=== PATIENT | female | born 1970 | race Caucasian/White ===

== ENCOUNTER → 2016-08-14 | Outpatient (CLI) | payer BC ==
--- NOTE | 2016-08-14 14:19 | MR ---
EXAMINATION TYPE: MR cervical spine wo con DATE OF EXAM: 08/14/2016 1:53 PM COMPARISON: NONE HISTORY: Arnold-Chiari type 1 compression of brain, pain TECHNIQUE: Multiplanar, multisequence images of the cervical spine were acquired. C2-C3: No evidence for degenerative disc disease. No disc bulge/herniation or protrusion. No Canal stenosis. Foramina are patent bilaterally. C3-C4: No evidence for degenerative disc disease. No disc bulge/herniation or protrusion. No Canal stenosis. Foramina are patent bilaterally. C4-C5: No evidence for degenerative disc disease. No disc bulge/herniation or protrusion. No Canal stenosis. Foramina are patent bilaterally. C5-C6: Small posterior disc bulge causes minimal anterior mass effect on the thecal sac similar to pr ior exam. No Canal stenosis. Foramina are patent bilaterally. C6-C7: No evidence for degenerative disc disease. No disc bulge/herniation or protrusion. No Canal stenosis. Foramina are patent bilaterally. C7-T1: No evidence for degenerative disc disease. No disc bulge/herniation or protrusion. No Canal stenosis. Foramina are patent bilaterally. Postop changes compatible with Chiari decompression are present. Fluid signal is present at the poste rior occipital soft tissues, portion of the posterior elements of C1 have been resected as well as th e occipital craniotomy. The fluid collection measures approximately 5.5 x 2.4 x 3.7 cm. Slight contou r anomaly present at the posterior cerebellum similar to preoperative exam. There may be some local m ass effect. There is tonsillar beaking present. Cervical cord signal is maintained. There is normal a lignment. No significant central canal stenosis. Craniovertebral junction relationships are within no rmal limits. IMPRESSION: Postoperative changes as described. Correlate, findings likely represent seroma. Otherwise essentiall y stable findings.
== END | disposition home or self-care (01) ==
LOC: RADMRIMAIN 13:00
PROVIDERS: ATTEND Neurological Surgery
DX: G93.5 Compression of brain (principal); Z98.890 Other specified postprocedural states
CPT/HCPCS: 72141

== ENCOUNTER 2017-06-06 23:27 | Emergency (ER) | payer BC ==
[2017-06-06 23:32] VITALS: BP 137/65; PULSE 63; RESP 18; TEMP 97.6
--- NOTE | 2017-06-06 23:56 | ED ---
General Adult HPI - General Chief complaint: Wound/Laceration Stated complaint: chin lac Time Seen by Provider: 06/06/17 23:35 Source: patient, RN notes reviewed Mode of arrival: ambulatory Limitations: no limitations - History of Present Illness Initial comments: 46-year-old female presents for a chin laceration. Patient was rollerblading and she tripped and fell and cut her chin around 9:00 today. She is up-to-date on her tetanus vaccination. She states she does not lose consciousness she's not had a headache she denies any neck pain. She denies any nausea or vomiting. She was concerned due to the bleeding so she thought that she should be evaluated.Patient denies any recent fever, chills, shortness of breath, chest pain, back pain, abdominal pain, nausea vomiting, numbness or tingling, dysuria or hematuria, constipation or diarrhea, headaches or visual changes, or any other current symptoms. - Related Data Home Medications Medication Instructions Recorded Confirmed Ibuprofen [Motrin] 600 mg PO Q6HR PRN 06/06/17 06/06/17 Multivitamins, Thera [Multivitamin 1 tab PO DAILY 06/06/17 06/06/17 (formulary)] Allergies Allergy/AdvReac Type Severity Reaction Status Date / Time No Known Allergies Allergy Verified 06/06/17 23:40 Review of Systems ROS Statement: Those systems with pertinent positive or pertinent negative responses have been documented in the HPI. ROS Other: All systems not noted in ROS Statement are negative. Past Medical History Past Medical History: No Reported History History of Any Multi-Drug Resistant Organisms: None Reported Past Surgical History: No Surgical Hx Reported Past Psychological History: No Psychological Hx Reported Smoking Status: Never smoker Past Alcohol Use History: Rare Past Drug Use History: None Reported General Exam Limitations: no limitations General appearance: alert, in no apparent distress Head exam: Present: atraumatic, normocephalic. Absent: normal inspection ( Patient appears to have a 1-1/2 from a laceration to the chin) Eye exam: Present: normal appearance, PERRL, EOMI. Absent: scleral icterus, conjunctival injection, periorbital swelling ENT exam: Present: normal exam, normal oropharynx, mucous membranes moist, normal external ear exam Neck exam: Present: normal inspection. Absent: tenderness, meningismus, lymphadenopathy Respiratory exam: Present: normal lung sounds bilaterally. Absent: respiratory distress, wheezes, rales, rhonchi, stridor Cardiovascular Exam: Present: regular rate, normal rhythm, normal heart sounds. Absent: systolic murmur, diastolic murmur, rubs, gallop, clicks Neurological exam: Present: alert, oriented X3 Psychiatric exam: Present: normal affect, normal mood Skin exam: Present: warm, dry, intact, normal color. Absent: rash Course Vital Signs 06/06/17 23:30 Temperature 97.6 F Pulse Rate 63 Respiratory 18 Rate Blood Pressure 137/65 O2 Sat by Pulse 99 Oximetry Procedures - Procedures Initial comment: The skin was anesthetized with 1% lidocaine. The laceration was then cleansed with Betadine and irrigated with normal saline. The wound was inspected, and there was no evidence of injury to deep structures. No foreign body was noted in the wound. A total of 3 skin sutures were placed utilizing 6-0 nylon to a 1.5 cm laceration of the chin Medical Decision Making - Medical Decision Making 46-year-old female presents emergency department with chief complaint of chin laceration. This time patient went suture care. We discussed follow-up return parameters questions. They stated that she understood and she plan. She will be discharged. Disposition Clinical Impression: Chin laceration, Fall Disposition: HOME SELF-CARE Condition: Stable Instructions: Laceration (ED), Care For Your Stitches (ED) Additional Instructions: Please use medication as discussed. Please follow up with family doctor if symptoms have not improved over the next two days. Please return to the emergency room if your symptoms increase or worsen or for any other concerns. Please return to the emergency room in 5 days to have sutures removed. Please leave wound covered for the first 24-48 hours and then leave open to air after that time. Please use clean soap and water to clean the suture area to prevent scabbing over the top of your sutures. Please watch for any signs of infection which may include but not limited to increased pain, swelling, redness, fever or chills. Please return to the emergency room if any signs of infection do occur. Please return to the emergency room for any other concerns or complications. Referrals: Azael Connolly DO [Primary Care Provider] - 1-2 days Time of Disposition: 23:56
== END 2017-06-07 00:18 | disposition home or self-care (01) ==
LOC: EC 23:27
DX: S01.81XA Laceration without foreign body of other part of head, initial encounter (principal); W01.0XXA Fall on same level from slipping, tripping and stumbling without subsequent striking against object, initial encounter
CPT/HCPCS: 12011; 99282

== ENCOUNTER → 2017-11-12 | Outpatient (CLI) | payer OTHER ==
--- NOTE | 2017-11-12 21:43 | MR ---
EXAMINATION TYPE: MR lumbar spine wo con DATE OF EXAM: 11/12/2017 COMPARISON: NONE HISTORY: Low back pain since 1997 getting worse CONTRAST: 0 mL intravenous Gadavist. TECHNIQUE: Multiplanar, multisequence images of the lumbar spine were acquired. FINDINGS: Heart terminates at the L1 level. Disc desiccation is noted with some minimal preservation of the L4-5 hydration. L5-S1: Central moderate-sized disc bulge is present with moderate anterior thecal sac compression. No AP spinal canal stenosis present. Neural foramen are patent. L4-L5: Mild disc bulging is anterior thecal sac flattening. Mild facet hypertrophy is present with li gamentum flavum laxity. This has mild posterior lateral thecal sac compression. No spinal canal steno sis is present. No focal disc herniation is evident. Neural foramen are patent. L3-L4: Tiny central disc bulge is present with anterior thecal sac contact. No spinal canal stenosis or neural foraminal stenosis is present. Minimal ligamentum flavum laxity has posterior lateral theca l sac compression. L2-L3: No spinal canal stenosis. No foraminal stenosis. Minimal facet hypertrophy and ligamentum fla vum laxity is posterior lateral thecal sac compression. Some central focal bulging is present with an terior thecal sac contact. L1-L2: No significant disc bulge or disc herniation. No spinal canal stenosis. No foraminal stenosi s. . T12-L1: No significant disc bulge or disc herniation. No spinal canal stenosis. No foraminal stenos is. . IMPRESSION: 1. Moderate size central disc herniation L5-S1 with moderate anterior thecal sac compression. No sten osis is present. 2. Mild disc bulging L4-5 with mild anterior thecal sac flattening. 3. Minimal disc bulging L3-4 with anterior thecal sac contact. 4. Multilevel mild facet hypertrophy with minimal ligamentum flavum laxity has posterior lateral thec al sac compression. No stenosis is evident
== END | disposition home or self-care (01) ==
LOC: RADMRIMAIN 20:57
PROVIDERS: ATTEND Family Medicine
DX: M51.27 Other intervertebral disc displacement, lumbosacral region (principal); M46.86 Other specified inflammatory spondylopathies, lumbar region
CPT/HCPCS: 72148

== ENCOUNTER → 2017-12-31 | Outpatient (CLI) | payer OTHER ==
[2017-12-31 13:36] VITALS: BP 112/78; PULSE 74; RESP 16
--- NOTE | 2017-12-31 14:43 | P.HPIM ---
History of Present Illness H&P Date: 12/31/17 Chief Complaint: low back pain This is a 47-year-old patient referred by Dr. Connolly for chronic pain in low back without radiation. Patient's pain began when she lifted heavy drywall in 1997 and it has persistently worsened since then. Patient has been taking OTC medications for pain with only mild relief. Patient denies adverse drug effects from medications. Patient also denies new-onset weakness, bowel/ bladder incontinence, or any other signs or symptoms of cauda equina syndrome. There are no signs of acute intoxication, and no indications of medication diversion or overuse. Patient notes that pain worsens significantly with sitting/bending/twisting/ lifting and improves with rest Patient has used several types of medications for pain, including NSAIDS. Patient HAS NOT had surgery. Patient HAS NOT had injections previously. Patient HAS NOT had physical therapy recently. In addition to above, 13-point review of systems is also negative for chest pain , shortness of breath, changes in vision, changes in hearing, new onset weakness , abdominal pain, diarrhea, extreme fatigue, malaise, fever, skin changes, homicidal or suicidal ideation, or bowel or bladder incontinence. Vital Signs: Reviewed in EMR Gen: WDWN, AAOx3, NAD HEENT: NCAT, EOMI, hearing grossly normal Pulm: resp unlabored Abd: soft, NT, ND Neck: supple, trachea midline ROM in flexion lumbar spine: reduced ROM in extension lumbar spine: reduced Lumbar paravertebral tenderness: + Facet loading: + L > R SI joint tenderness: neg Jd's test: neg Straight leg raise: neg Past Medical History Past Medical History: No Reported History Additional Past Medical History / Comment(s): CHRONIC BACK PAIN History of Any Multi-Drug Resistant Organisms: None Reported Past Surgical History: Appendectomy, Tubal Ligation, Uterine Ablation Additional Past Surgical History / Comment(s): CHIARI MALFORMATION SX, SX TO PUT "FOLDS IN EARS" Past Anesthesia/Blood Transfusion Reactions: No Reported Reaction Past Psychological History: No Psychological Hx Reported Smoking Status: Never smoker Past Alcohol Use History: Rare Past Drug Use History: None Reported Medications and Allergies Home Medications Medication Instructions Recorded Confirmed Type Ibuprofen [Motrin] 600 mg PO Q6HR PRN 06/06/17 12/31/17 History Multivitamins, Thera [Multivitamin 1 tab PO DAILY 06/06/17 12/31/17 History (formulary)] Allergies Allergy/AdvReac Type Severity Reaction Status Date / Time No Known Allergies Allergy Verified 12/31/17 13:19 Physical Exam Vitals: Vital Signs Pulse Resp BP Pulse Ox 12/31/17 13:21 74 16 112/78 97 Results Comments: MRI lumbar spine demonstrates moderate-sized central disc herniation at the L5- S1 level with moderate anterior thecal sac compression. There is mild disc bulging at L4-L5 and L3-L4 both with mild anterior thecal sac contact. There is also multilevel mild facet arthropathy. Assessment and Plan (1) Lumbar disc herniation Current Visit: Yes Status: Chronic Code(s): M51.26 - OTHER INTERVERTEBRAL DISC DISPLACEMENT, LUMBAR REGION SNOMED Code(s): 644081368 (2) Lumbar spondylosis Current Visit: Yes Status: Chronic Code(s): M47.816 - SPONDYLOSIS W/O MYELOPATHY OR RADICULOPATHY, LUMBAR REGION SNOMED Code(s): 299674330 (3) Lumbar spinal stenosis Current Visit: Yes Status: Chronic Code(s): M48.061 - SPINAL STENOSIS, LUMBAR REGION WITHOUT NEUROGENIC MOR SNOMED Code(s): 03592581 Plan: 1. Explanation: Opioid and psychological risk scores were reviewed. Diagnoses , prognoses, and multiple treatment options including but not limited to physical therapy, interventional therapies, adjuvant medical therapies, narcotic medication therapies, and surgery were discussed with the patient and all questions were answered to the patient's satisfaction. 2. Opioid agreement: none prescribed 3. Counseling: The patient was counseled extensively on BODY MASS INDEX, EXERCISE. Specifically, the patient was instructed regarding the importance of weight control, and exercise in the context of both chronic pain and overall health. 4. Procedures: none for now 5. Consultations: physical therapy 6. Investigations: none 7. Medications: none prescribed 8. Morphine equivalents per day prescribed: zero 9. Disposition: f/u PRN. Patient does not wish to have any injections at this time. I advised her to to PT and return as needed if she does not get pain relief with that. PQRS measures: 1-Patient's medications are documented in the chart. 2-Tobacco use is negative 3-Patient has not had a pneumococcal vaccine. 4-Advanced care planning discussed, patient unable to give. 5-Opioid contract NOT signed with the patient. 6-Pain positive, follow-up visit or procedure scheduled 7-Patient's blood pressure measured and documented, and WNL. 8-Patient's weight was measured, and body mass index within the normal limits. 9-Patient WAS NOT identified as an unhealthy alcohol user. Time with Patient: Greater than 30
== END | disposition home or self-care (01) ==
LOC: PNWHC3 13:14
PROVIDERS: ATTEND Anesthesiology
DX: G89.29 Other chronic pain (principal); M48.061 Spinal stenosis, lumbar region without neurogenic claudication; M51.26 Other intervertebral disc displacement, lumbar region; M47.816 Spondylosis without myelopathy or radiculopathy, lumbar region; Z79.899 Other long term (current) drug therapy; Z79.1 Long term (current) use of non-steroidal anti-inflammatories (NSAID)
CPT/HCPCS: 99211

== ENCOUNTER → 2018-01-07 | Outpatient (CLI) | payer OTHER ==
--- NOTE | 2018-01-07 10:14 | CT ---
EXAMINATION TYPE: CT abdomen pelvis wo con DATE OF EXAM: 01/07/2018 COMPARISON: NONE HISTORY: 47-year-old female pelvic perineal pain, LLQ pain CT DLP: 229.5 mGycm. Automated exposure control for dose reduction was used. TECHNIQUE: Contiguous axial scanning of the abdomen and pelvis without IV contrast. Coronal and sagit juliana reconstructions performed. FINDINGS: Heart normal size without pericardial effusion. Lung bases clear without pleural effusion. Noncontrast appearance of the liver, adrenal glands, kidneys, spleen, and pancreas show no gross abno rmal mobility. Gallbladder not well seen, either collapsed or surgically absent. No dilated small bowel, free fluid, or free air. No mesenteric or retroperitoneal lymphadenopathy edwin ntified by noncontrast CT scattered small mesenteric lymph nodes are present. Mild overall stool burden is no pericolonic inflammatory change. Bladder under distended. Uterus is anteverted. Both ovaries are visualized. Small amount of cul-de-sa c free fluid. Multiple pelvic phleboliths. Lack of contrast decreases sensitivity in assessment of th e perineum. Bones: Degenerative disc disease L5-S1. No osseous destructive process. IMPRESSION: Small amount of cul-de-sac free fluid likely physiologic. Noncontrast exam decreases sensitivity. No specific abnormality identified.
== END | disposition home or self-care (01) ==
LOC: RADCTMAIN 09:04
PROVIDERS: ATTEND Family Medicine
CPT/HCPCS: 74176

== ENCOUNTER → 2018-05-25 | Outpatient (CLI) | payer OTHER ==
--- NOTE | 2018-05-25 13:55 | XR ---
EXAMINATION TYPE: XR finger RT DATE OF EXAM: 05/25/2018 CLINICAL HISTORY: pain TECHNIQUE: 3 views of the right second digit are submitted. COMPARISON: None FINDINGS: No displaced fracture is seen with certainty. Joint spaces are well-preserved. Correlate for soft tissue injury. No radiopaque foreign body identified. IMPRESSION: No acute displaced fracture or dislocation.
== END | disposition home or self-care (01) ==
LOC: RADXRMAIN 08:39
PROVIDERS: ATTEND Physician Assistant
DX: S61.210D Laceration without foreign body of right index finger without damage to nail, subsequent encounter (principal)

== ENCOUNTER → 2018-11-27 | Outpatient (CLI) | payer OTHER ==
--- NOTE | 2018-11-27 14:49 | CT ---
EXAMINATION TYPE: CT pelvis w con DATE OF EXAM: 11/27/2018 COMPARISON: CT abdomen and pelvis January 07, 2018 HISTORY: Left sided pelvic pain. CT DLP: 389.5 mGycm Automated exposure control for dose reduction was used. CONTRAST: Performed with IV Contrast, patient injected with 100 mL of Isovue 300. FINDINGS: There is persistent heterogeneous anteverted uterus. No free fluid in pelvic cul-de-sac. Both ovaries are seen and normal in size. No suspicious small or large bowel dilatation. Bladder is felt within n ormal limits. Some left-sided pelvic phleboliths are redemonstrated. Persistent moderate to severe disc space narrowing lumbosacral junction. No suspicious groin hernia or adenopathy. IMPRESSION: NO SUSPICIOUS NEW OR ACUTE FINDING SEEN TO ACCOUNT FOR PATIENT'S LEFT-SIDED PELVIC PAIN
== END ==
LOC: RADCTMAIN 12:27
PROVIDERS: ATTEND Family Medicine
DX: R10.2 Pelvic and perineal pain (principal)
CPT/HCPCS: 72193; Q9967

== ENCOUNTER → 2020-02-01 | Outpatient (CLI) | payer OTHER ==
--- NOTE | 2020-02-01 17:17 | MR ---
EXAMINATION TYPE: MR cervical spine wo/w con DATE OF EXAM: 02/01/2020 COMPARISON: Prior MR cervical spine 06/24/2017 HISTORY: Neck Pain, DDD, [facility] Surgery in 2016 TECHNIQUE: Multiplanar, multisequence images of the cervical spine were acquired utilizing 6 mL intravenous Gada vist gadolinium contrast. Diffusion weighted imaging was performed. C2-C3: No evidence for degenerative disc disease. No disc bulge/herniation or protrusion. No Canal stenosis. Foramina are patent bilaterally. C3-C4: No evidence for degenerative disc disease. No disc bulge/herniation or protrusion. No Canal stenosis. Foramina are patent bilaterally. C4-C5: No evidence for degenerative disc disease. No disc bulge/herniation or protrusion. No Canal stenosis. Foramina are patent bilaterally. C5-C6: Posterior disc bulge causes mild anterior mass effect on the thecal sac C6-C7: Stable in appearance, minimal posterior disc bulge causes only slight anterior mass effect on the thecal sac C7-T1: No evidence for degenerative disc disease. No disc bulge/herniation or protrusion. No Canal stenosis. Foramina are patent bilaterally. Cervical segments are intact. There is normal alignment. Cervical spinal cord is of normal signal. Craniovertebral junction relationships are stable, postop changes consistent with patient's history are noted, susceptibility artifacts are present at the posterior occipital region. Mild spondylosis, endplate discogenic marrow signal change present C5-6 as on prior exam. No evident spinal stenosis. No abnormal enhancement on contrast administration. IMPRESSION: Essentially stable exam. Postop changes, mild degenerative disc disease
== END | disposition home or self-care (01) ==
LOC: RADMRIMAIN 15:26
PROVIDERS: ATTEND Family Medicine
DX: M50.322 Other cervical disc degeneration at C5-C6 level (principal); Z98.890 Other specified postprocedural states
CPT/HCPCS: 72156; A9585

== ENCOUNTER → 2020-06-23 | Outpatient (CLI) | payer OTHER | END | disposition home or self-care (01) | LOC: LABWHC1 17:01 | PROVIDERS: ATTEND Family Medicine | DX: Z20.828 Contact with and (suspected) exposure to other viral communicable diseases (principal) | CPT/HCPCS: U0003; C9803 ==

== ENCOUNTER → 2021-01-08 | Outpatient (CLI) | payer OTHER ==
--- NOTE | 2021-01-08 11:12 | MR ---
EXAMINATION TYPE: MR cervical spine wo/w con DATE OF EXAM: 01/08/2021 COMPARISON: Cervical MRI 02/01/2020 HISTORY: Cervical disc degeneration, neck pain TECHNIQUE: Multiplanar, multisequence images of the cervical spine were acquired utilizing 5.5 mL intravenous Ga davist gadolinium contrast. Diffusion weighted imaging was performed. C2-C3: No evidence for degenerative disc disease. No disc bulge/herniation or protrusion. No Canal stenosis. Foramina are patent bilaterally. C3-C4: No evidence for degenerative disc disease. No disc bulge/herniation or protrusion. No Canal stenosis. Foramina are patent bilaterally. C4-C5: No evidence for degenerative disc disease. No disc bulge/herniation or protrusion. No Canal stenosis. Foramina are patent bilaterally. C5-C6: Similar to prior exam there is posterior extension of endplate disc complex somewhat eccentric towards the right encroaching minimally on the right neural foramen. No significant spinal stenosis. There is some loss of disc height signal consistent with disc desiccation and degenerative disc dise ase. C6-C7: There is a posterior extension endplate disc complex similar to prior exam causing mild anteri or mass effect on the thecal sac, uncovertebral joint hypertrophy causes some foraminal encroachment bilaterally C7-T1: No evidence for degenerative disc disease. No disc bulge/herniation or protrusion. No Canal stenosis. Foramina are patent bilaterally. Cervical segments are intact. There is normal alignment. Cervical spinal cord is of normal signal. Craniovertebral junction relationships are within normal limits. No abnormal enhancement following contrast administration. Cervical vertebral bodies show preserved height. Bone marrow signal is remar kable for endplate discogenic marrow signal change to prior exam at the levels of spondylosis at C5-6 , C6-7. Posterior craniotomy is present at the level of the occipital bone as on prior exam, peglike tonsils again noted at the inferior cerebellar hemispheres. IMPRESSION: There is not a significant interval change. Mild degenerative disc disease as described. Postop changes are stable.
== END | disposition home or self-care (01) ==
LOC: RADMRIMAIN 09:07
PROVIDERS: ATTEND Family Medicine
DX: M50.30 Other cervical disc degeneration, unspecified cervical region (principal); M99.71 Connective tissue and disc stenosis of intervertebral foramina of cervical region
CPT/HCPCS: 72156; A9585

== ENCOUNTER → 2022-01-22 | Outpatient (CLI) | payer OTHER ==
--- NOTE | 2022-01-22 15:45 | P.SLEEP ---
History of Present Illness H&P Date: 01/22/22 This is a 51-year-old female patient was referred to me for chronic exhaustion and fatigue. Upon further questioning, the patient reports limited sleepiness. Even though when she is excessively fatigued, the patient does not seem to fall asleep and she carries on with her activities of daily today life. An extensive evaluation was already done by her primary care physician regarding her chronic fatigue without any clear underlying cause. For that reason, it was decided to evaluate this patient's sleep quality and and see if there is any sleep issues contributing to her chronic tiredness. For that reason, the patient was referred to me. She has no history of snoring. No history of any insomnia. No choking or gasping for air in the middle of the night. No restlessness lower extremities. No grinding of the teeth. No sleepwalking or sleep talking. No issues with anxiety or panic attack. No palpitations overnight. No heartburn. No nocturia. She goes to bed around 10 PM. Wakes at 7 AM in the morning and she is excessively fatigued and exhausted. It takes a few minutes to fall asleep. Does not take any naps during the day. No recent weight gain. Sleeps on her side. Bedroom environment is quite comfortable. No personal family history of sleep apnea. No sleep paralysis. No hallucinations. No cataplexy. [place] score is at 11. Review of Systems Constitutional: Reports fatigue Eyes: denies as per HPI, denies blurred vision, denies bulging eye, denies decreased vision, denies diplopia, denies discharge, denies dry eye, denies irritation, denies itching, denies pain, denies photophobia, denies loss of peripheral vision, denies loss of vision, denies tunnel vision/blind spots Ears: deny: decreased hearing, ear discharge, earache, tinnitus Ears, nose, mouth and throat: Reports as per HPI Breasts: absent: as per HPI, change in shape, gynecomastia, masses, nipple discharge, pain, skin changes, swelling Breasts: Reports as per HPI Cardiovascular: Reports as per HPI Respiratory: Reports as per HPI Gastrointestinal: Reports as per HPI Genitourinary: Reports as per HPI Menstruation: Reports as per HPI Musculoskeletal: Reports as per HPI Musculoskeletal: absent: ankle pain, ankle stiffness, ankle swelling Integumentary: Reports as per HPI Neurological: Reports as per HPI Psychiatric: Reports as per HPI Endocrine: Reports as per HPI, Reports fatigue Hematologic/Lymphatic: Reports as per HPI Allergic/Immunologic: Reports as per HPI Past Medical History Past Medical History: No Reported History Additional Past Medical History / Comment(s): CHRONIC BACK PAIN, Chiari malformation type I, ALLERGIC rhinitis History of Any Multi-Drug Resistant Organisms: None Reported Past Surgical History: Appendectomy, Tubal Ligation, Uterine Ablation Additional Past Surgical History / Comment(s): CHIARI MALFORMATION SX, SX TO PUT "FOLDS IN EARS" Past Anesthesia/Blood Transfusion Reactions: No Reported Reaction Past Psychological History: No Psychological Hx Reported Past Alcohol Use History: Rare Past Drug Use History: None Reported Medications and Allergies Home Medications Medication Instructions Recorded Confirmed Type Ibuprofen [Motrin] 600 mg PO Q6HR PRN 06/06/17 12/31/17 History Multivitamins, Thera [Multivitamin 1 tab PO DAILY 06/06/17 12/31/17 History (formulary)] Allergies Allergy/AdvReac Type Severity Reaction Status Date / Time No Known Allergies Allergy Verified 12/31/17 13:19 Physical Exam BP is 180/81, pulse is 67, respirations 12, weight is 125, temperature 96.6, saturation 97% on room air, body mass index is 18.6, [place] score is at 11. The patient appeared well nourished and normally developed. Vital signs as documented. Head exam is unremarkable. No scleral icterus or corneal arcus noted. Neck is without jugular venous distension, thyromegaly, or carotid bruits. Carotid upstrokes are brisk bilaterally. Lungs are clear to auscultation and percussion. Cardiac exam reveals the PMI to be normally sized and situated. Rhythm is regular. First and second heart sounds normal. No murmurs, rubs or gallops. Abdominal exam reveals normal bowel sounds, no masses, no organomegaly and no aortic enlargement. Extremities are nonedematous and both femoral and pedal pulses are normal.Examination of the skin revealed no evidence of significant rashes, suspicious appearing nevi or other concerning lesions.Neurologically, the patient is awake and alert and the patient does not have any focal neurological deficit. Cranial nerves are essentially intact. Assessment and Plan Plan: Chronic fatigue/exhaustion with limited sleepiness, currently under investigation. There is no identifiable underlying cause. No substance abuse to no alcoholism. No major comorbid conditions contributing to her symptoms of chronic fatigue. Workup has been negative. Sleep quality needs to be further characterized. Chiari malformation type I ALLERGIC rhinitis Plan We'll proceed with a screening polysomnogram to evaluate this patient's sleep quality, architecture, and decide if there is any abnormalities contributing to this patient's chronic symptoms of fatigue and exhaustion. We'll review the sleep study. We'll contact the patient with the results. Her sleep hygiene measures are in generally good. The patient is sleeping good number of hours. She maintains a regular sleep schedule. Sleep Note - Sleep Note Sleep Note: Temperature: Pulse Rate: Respiratory Rate: Blood Pressure: SpO2: Height: Weight: BMI: Neck Circumference:
== END ==
LOC: SLEEP 15:06
PROVIDERS: ATTEND Internal Medicine Critical Care Medicine
DX: R40.0 Somnolence (principal); G93.5 Compression of brain; J30.9 Allergic rhinitis, unspecified; R53.82 Chronic fatigue, unspecified
CPT/HCPCS: 99211

== ENCOUNTER → 2022-04-12 | Outpatient (CLI) | payer OTHER ==
--- NOTE | 2022-04-12 14:23 | CT ---
EXAMINATION TYPE: CT abdomen pelvis wo con DATE OF EXAM: 04/12/2022 COMPARISON: 11/27/2018 HISTORY: Left lower quadrant pain CT DLP: 614 mGycm Examination of the solid and hollow viscera is limited given the lack of contrast. FINDINGS: LUNG BASES: No evidence for nodule. No evidence for infiltrate. LIVER/GB: The gallbladder is unremarkable. No space-occupying hepatic lesion. PANCREAS: No pancreatic mass identified. No inflammatory process seen. SPLEEN: No evidence for splenomegaly. No intrasplenic lesions seen. ADRENALS: No adrenal nodules identified. No evidence for thickening. KIDNEYS: No evidence for renal mass. No nephrolithiasis. No hydronephrosis. BOWEL: Appendix has a normal appearance. No evidence of bowel obstruction. No inflammatory process. Lymph nodes: No evidence for adenopathy greater than 1 cm. Abdominal aorta: Atheromatous changes seen. No evidence for aneurysm. Genital organs: Bilobed cyst left ovary with each component measuring 2.1 cm and 2.0 cm respectively. Suspect right ovarian cyst as well measuring 1.6 cm. The uterus is unremarkable. Other: No significant abnormality. IMPRESSION: 1. Bilateral ovarian cysts. Consider ultrasound correlation. Otherwise unremarkable study.
== END | disposition home or self-care (01) ==
LOC: RADCTMAIN 12:35
PROVIDERS: ATTEND Family Medicine
DX: N83.201 Unspecified ovarian cyst, right side (principal); N83.202 Unspecified ovarian cyst, left side
CPT/HCPCS: 74176

== ENCOUNTER → 2023-10-01 | Outpatient (CLI) | payer MEDICAID ==
[2023-10-01 16:57] LABS: Basophils # (A) 0.02 X 10*3/uL (0.00-0.10); Basophils % (A) 0.4 %; Eosinophils # (A) 0.07 X 10*3/uL (0.04-0.35); Eosinophils % (A) 1.6 %; HCT 43.1 % (37.2-46.3); HGB 14.4 g/dL (12.0-15.0); Lymphocytes # (A) 1.41 X 10*3/uL (0.90-5.00); Lymphocytes % (A) 31.4 %; MCH 30.1 pg (27.0-32.0); MCHC 33.4 g/dL (32.0-37.0); MCV 90.2 FL (80.0-97.0); Mean Platelet Volume 11.6 FL (9.5-12.2); Monocytes % (A) 8.9 %; NRBC Per 100 WBC 0 X 10*3/uL (0.00-0.01); Neutrophils # (A) 2.58 X 10*3/uL (1.80-7.70); Neutrophils % (A) 57.5 %; Platelet Count 153 X 10*3/uL (140-440); RBC 4.78 X 10*6/uL (4.10-5.20); RDW 12.7 % (11.5-14.5); WBC 4.49 X 10*3/uL (4.50-10.00)
[2023-10-01 17:26] LABS: Thyroid Peroxidase Antibodies 11.5 U/mL (0.0-33.0)
[2023-10-01 17:37] LABS: Follicle Stimulating Hormone 28.2 mIU/mL; Progesterone 0.7 ng/mL
== END | disposition home or self-care (01) ==
LOC: LABWHC1 09:10
PROVIDERS: ATTEND Midwife
DX: R68.82 Decreased libido (principal)
CPT/HCPCS: 36415; 82670; 83001; 84144; 84403; 84443; 85025; 86376; 86800

== ENCOUNTER → 2023-10-03 | Outpatient (CLI) | payer MEDICAID, OTHER ==
--- NOTE | 2023-10-06 12:04 | MM ---
Reason for Exam: Screening (asymptomatic). Last mammogram was performed 9 year(s) and 11 month(s) ago. Patient History: Menarche at age 15. First Full-Term at age 33. Late child-bearing (after 30). Postmenopausal. Patient has history of breast feeding. Hormonal Contraceptives for 14 years from age 21 until age 41. 04/03/2012, Benign Core Biopsy on the right side. 2008, Bilateral Implants. Risk Values: Shira 5 year model risk: 1.6%. NCI Lifetime model risk: 14.2%. Prior Study Comparison: 04/03/2012 Right Diagnostic Mammogram, [facility]. 10/16/2012 Right Diagnostic Mammogram, [facility]. 11/17/2013 Bilateral Diagnostic Mammogram, [facility]. Tissue Density: The breasts are heterogeneously dense, which may obscure small masses. Findings: Analyzed By CAD. Bilateral breast implants appear intact. There is no suspicious group of microcalcifications or new suspicious mass. Overall Assessment: Negative, BI-RAD 1 Management: Screening Mammogram of both breasts in [address] [facility] will attempt to contact patient to return for supplemental views and ultrasound if indicated. Patient should continue monthly self-breast exams. A clinical breast exam by your physician is recommended on an annual basis. This exam should not preclude additional follow-up of suspicious palpable abnormalities. Note on Shira scores and lifetime risk: 1. A Shira score greater than 3% is considered moderate risk. If this is the case, consider specialist referral to assess eligibility for a risk reducing agent. 2. If overall lifetime risk for the development of breast cancer is 20% or higher, the patient may qualify for future screening with alternating mammogram and breast MRI. Electronically signed and approved by: Chan Camacho DO
== END | disposition home or self-care (01) ==
LOC: RADMAMWWP 11:04
PROVIDERS: ATTEND Obstetrics & Gynecology
DX: Z12.31 Encounter for screening mammogram for malignant neoplasm of breast (principal); Z78.0 Asymptomatic menopausal state
CPT/HCPCS: 77063; 77067

== ENCOUNTER 2024-01-02 08:04 | Emergency (ER) | payer MEDICAID ==
[2024-01-02 08:10] VITALS: TEMP 98.1
[2024-01-02 08:57] LABS: Basophils % (A) 1 %; Eosinophils # (A) 0.1 k/uL (0-0.7); Eosinophils % (A) 2 %; HCT 46.7 % (34.0-46.0); Lymphocytes # (A) 1.2 k/uL (1.0-4.8); Lymphocytes % (A) 29 %; MCH 30.5 pg (25.0-35.0); MCHC 32.1 g/dL (31.0-37.0); Mean Platelet Volume 9.1; Monocytes # (A) 0.3 k/uL (0-1.0); Monocytes % (A) 6 %; Neutrophils # (A) 2.5 k/uL (1.3-7.7); Neutrophils % (A) 59 %; Platelet Count 176 k/uL (150-450); RBC 4.92 m/uL (3.80-5.40); RDW 12.1 % (11.5-15.5); WBC 4.3 k/uL (3.8-10.6)
[2024-01-02] MEDS: ONDANSETRON 4 MG/2 ML VIAL IVP STA (09:02)
[2024-01-02] MEDS: KETOROLAC 15 MG/ML 1 ML VIAL IVP STA (09:02)
[2024-01-02] MEDS: SODIUM CHLORIDE 0.9% 1,000 ML IV STA (09:03)
--- NOTE | 2024-01-02 09:05 | ED ---
Back Pain HPI - General Chief Complaint: Back Pain/Injury Stated Complaint: Flank pain in left side Time Seen by Provider: 01/02/24 08:21 Source: patient, RN notes reviewed Mode of arrival: ambulatory Limitations: no limitations - History of Present Illness Initial Comments: This is a 53-year-old female who presents to the emergency department for left f lank pain. States that it started 2 days ago. Denies any associated nausea. Pain does not radiate anywhere. The only time she ever had pain like this was when she had appendicitis, and pain was on the right side at that point. Denies any history of kidney stones. Denies any changes in bowel/bladder habits or fever/chills. She tried taking Advil and Aleve without relief in symptoms. MD Complaint: back pain - Related Data Home Medications Medication Instructions Recorded Confirmed Ibuprofen [Motrin] 600 mg PO Q6HR PRN 06/06/17 12/31/17 Multivitamins, Thera [Multivitamin 1 tab PO DAILY 06/06/17 12/31/17 (formulary)] Previous Rx's Medication Instructions Recorded Diclofenac Sodium [Voltaren] 75 mg PO BID PRN #30 tab 01/02/24 Lidocaine 5% Patch [Lidoderm 5% 1 patch TOPICAL DAILY PRN #30 patch 01/02/24 Patch] methocarbamoL [Robaxin-750] 1,500 mg PO TID PRN #30 tab 01/02/24 Allergies Allergy/AdvReac Type Severity Reaction Status Date / Time No Known Allergies Allergy Verified 01/02/24 08:10 Review of Systems ROS Statement: Those systems with pertinent positive or pertinent negative responses have been documented in the HPI. ROS Other: All systems not noted in ROS Statement are negative. Past Medical History Past Medical History: No Reported History Additional Past Medical History / Comment(s): CHRONIC BACK PAIN, Chiari malformation type I, ALLERGIC rhinitis History of Any Multi-Drug Resistant Organisms: None Reported Past Surgical History: Appendectomy, Tubal Ligation, Uterine Ablation Additional Past Surgical History / Comment(s): CHIARI MALFORMATION SX, SX TO PUT "FOLDS IN EARS" Past Anesthesia/Blood Transfusion Reactions: No Reported Reaction Past Psychological History: No Psychological Hx Reported Smoking Status: Never smoker Past Alcohol Use History: None Reported Past Drug Use History: None Reported General Exam Limitations: no limitations General appearance: alert, in no apparent distress Head exam: Present: atraumatic, normocephalic, normal inspection Respiratory exam: Present: normal lung sounds bilaterally. Absent: respiratory distress, wheezes, rales, rhonchi, stridor Cardiovascular Exam: Present: regular rate, normal rhythm, normal heart sounds. Absent: systolic murmur, diastolic murmur, rubs, gallop, clicks GI/Abdominal exam: Present: soft, tenderness (Left mid abdomen), normal bowel sounds. Absent: distended, guarding, rebound, rigid Back exam: Present: CVA tenderness (L). Absent: CVA tenderness (R) Neurological exam: Present: alert, oriented X3, CN II-XII intact Psychiatric exam: Present: normal affect, normal mood Skin exam: Present: warm, dry, intact, normal color. Absent: rash Course Vital Signs 01/02/24 01/02/24 01/02/24 08:05 13:03 14:25 Temperature 98.1 F Pulse Rate 82 66 72 Respiratory 22 18 16 Rate Blood Pressure 108/70 113/73 132/72 O2 Sat by Pulse 99 97 97 Oximetry Medical Decision Making - Medical Decision Making This is a 53 year old female who presents to the emergency department for left flank pain. Was pt. sent in by a medical professional or institution? @ -No Did you speak to anyone other than the patient for history? @ -No Did you review nursing and triage notes? @ -Yes, and I agree, it is accurate with regards to the patient's symptoms. Were old charts reviewed? @ -No Differential Diagnosis? @ -Differential Flank Pain: UTI, pyelonephritis, kidney stone, musculoskeletal, pancreatitis, cholecystitis, this is not meant to be an all-inclusive list. EKG interpreted by me (3pts min.)? @ -Not obtained X-rays interpreted by me (1pt min.)? @ -Not obtained CT interpreted by me (1pt min.)? @ -CT scan of the abdomen and pelvis obtained. My interpretation identifies no evidence of a ureteral calculus. U/S interpreted by me (1pt. min.)? @ -Ultrasound of the abdomen obtained. My interpretation identifies no evidence of an enlarged spleen or hydronephrosis. What testing was considered but not performed? (CT, X-rays, U/S, labs)? Why? @ -None What meds were considered but not given? Why? @ -None Did you discuss the management of the patient with other professionals? @ -No Did you reconcile home meds? @ -No Was smoking cessation discussed for >3mins.? @ -No Was critical care preformed (if so, how long)? @ -No Were there social determinants of health that impacted care today? How? (Homelessness, low income, unemployed, alcoholism, drug addiction, transportation, low edu. Level, literacy, decrease access to med. care, fdc, rehab)? @ -No Was there de-escalation of care discussed even if they declined? (Discuss DNR or withdrawal of care, Hospice)? @ -No What co-morbidities impacted this encounter? (DM, HTN, Smoking, COPD, CAD, Cancer, CVA, Hep., AIDS, mental health diagnosis, sleep apnea, morbid obesity)? @ -None Was patient admitted / discharged? @ -Discharged. Lab work unremarkable. Urinalysis negative for signs of blood or infection. CT scan of the abdomen and pelvis demonstrates a linear density along the posterior margin of the spleen that cannot be fully evaluated. There is no surrounding fluid. This could be artifactual, however they advised follow-up with an ultrasound for further evaluation. Ultrasound of the abdomen demonstrated no acute process. Her pain was managed in the emergency departmen t. Advised that the cause of her symptoms is not entirely clear. It may be musculoskeletal in nature and she did have some improvement with Norflex. She is advised to have close follow-up with her primary care provider for reevaluation. Prescription for diclofenac, Robaxin, and lidocaine patches provided with dosing instructions reviewed. Undiagnosed new problem with uncertain prognosis? @ -None Drug Therapy requiring intensive monitoring for toxicity (Heparin, Nitro, Insulin, Cardizem)? @ -None Were any procedures done? @ -None Diagnosis/symptom? @ -Left flank pain Acute, or Chronic, or Acute on Chronic? @ -Acute Uncomplicated (without systemic symptoms) or Complicated (systemic symptoms)? @ -Uncomplicated Side effects of treatment? @ -None Exacerbation, Progression, or Severe Exacerbation] @ -Not applicable Poses a threat to life or bodily function? @ -No Return precautions reviewed in depth, the patient is instructed to return to the emergency department with any new, worsening, or concerning symptoms. Patient verbalized understanding. This case was discussed in detail with the attending ED physician, Dr. Chavez. Presentation, findings, and treatment plan discussed in detail as well. - Lab Data Result diagrams: 01/02/24 08:42 01/02/24 08:42 Lab Results 01/02/24 01/02/24 01/02/24 Range/Units 08:42 08:42 08:42 WBC 4.3 (3.8-10.6) k/uL RBC 4.92 (3.80-5.40) m/uL Hgb 15.0 (11.4-16.0) gm/dL Hct 46.7 H (34.0-46.0) % MCV 95.0 (80.0-100.0) fL MCH 30.5 (25.0-35.0) pg MCHC 32.1 (31.0-37.0) g/dL RDW 12.1 (11.5-15.5) % Plt Count 176 (150-450) k/uL MPV 9.1 Neutrophils % 59 % Lymphocytes % 29 % Monocytes % 6 % Eosinophils % 2 % Basophils % 1 % Neutrophils # 2.5 (1.3-7.7) k/uL Lymphocytes # 1.2 (1.0-4.8) k/uL Monocytes # 0.3 (0-1.0) k/uL Eosinophils # 0.1 (0-0.7) k/uL Basophils # 0.0 (0-0.2) k/uL Sodium 138 (137-145) mmol/L Potassium 4.0 (3.5-5.1) mmol/L Chloride 105 (98-107) mmol/L Carbon Dioxide 28 (22-30) mmol/L Anion Gap 5 mmol/L BUN 18 H (7-17) mg/dL Creatinine 0.68 (0.52-1.04) mg/dL Est GFR (CKD-EPI)AfAm >90 (>60 ml/min/1.73 sqM) Est GFR (CKD-EPI)NonAf >90 (>60 ml/min/1.73 sqM) Glucose 111 H (74-99) mg/dL Plasma Lactic Acid Stephen (0.7-2.0) mmol/L Calcium 9.3 (8.4-10.2) mg/dL Total Bilirubin 0.8 (0.2-1.3) mg/dL AST 23 (14-36) U/L ALT 16 (4-34) U/L Alkaline Phosphatase 45 (38-126) U/L Troponin I (0.000-0.034) ng/mL Total Protein 6.4 (6.3-8.2) g/dL Albumin 4.1 (3.5-5.0) g/dL Amylase 50 (30-110) U/L Lipase 49 (23-300) U/L Urine Color Colorless Urine Appearance Cloudy H (Clear) Urine pH 8.0 (5.0-8.0) Ur Specific [place] 1.017 (1.001-1.035) Urine Protein Trace H (Negative) Urine Glucose (UA) Negative (Negative) Urine Ketones Negative (Negative) Urine Blood Negative (Negative) Urine Nitrite Negative (Negative) Urine Bilirubin Negative (Negative) Urine Urobilinogen <2.0 (<2.0) mg/dL Ur Leukocyte Esterase Negative (Negative) Urine RBC 2 (0-5) /hpf Urine WBC 2 (0-5) /hpf Ur Squamous Epith Cells 3 (0-4) /hpf Urine Bacteria Few H (None) /hpf Urine Mucus Rare H (None) /hpf 01/02/24 01/02/24 Range/Units 08:42 08:42 WBC (3.8-10.6) k/uL RBC (3.80-5.40) m/uL Hgb (11.4-16.0) gm/dL Hct (34.0-46.0) % MCV (80.0-100.0) fL MCH (25.0-35.0) pg MCHC (31.0-37.0) g/dL RDW (11.5-15.5) % Plt Count (150-450) k/uL MPV Neutrophils % % Lymphocytes % % Monocytes % % Eosinophils % % Basophils % % Neutrophils # (1.3-7.7) k/uL Lymphocytes # (1.0-4.8) k/uL Monocytes # (0-1.0) k/uL Eosinophils # (0-0.7) k/uL Basophils # (0-0.2) k/uL Sodium (137-145) mmol/L Potassium (3.5-5.1) mmol/L Chloride (98-107) mmol/L Carbon Dioxide (22-30) mmol/L Anion Gap mmol/L BUN (7-17) mg/dL Creatinine (0.52-1.04) mg/dL Est GFR (CKD-EPI)AfAm (>60 ml/min/1.73 sqM) Est GFR (CKD-EPI)NonAf (>60 ml/min/1.73 sqM) Glucose (74-99) mg/dL Plasma Lactic Acid Stephen 1.1 (0.7-2.0) mmol/L Calcium (8.4-10.2) mg/dL Total Bilirubin (0.2-1.3) mg/dL AST (14-36) U/L ALT (4-34) U/L Alkaline Phosphatase (38-126) U/L Troponin I <0.012 (0.000-0.034) ng/mL Total Protein (6.3-8.2) g/dL Albumin (3.5-5.0) g/dL Amylase (30-110) U/L Lipase (23-300) U/L Urine Color Urine Appearance (Clear) Urine pH (5.0-8.0) Ur Specific [place] (1.001-1.035) Urine Protein (Negative) Urine Glucose (UA) (Negative) Urine Ketones (Negative) Urine Blood (Negative) Urine Nitrite (Negative) Urine Bilirubin (Negative) Urine Urobilinogen (<2.0) mg/dL Ur Leukocyte Esterase (Negative) Urine RBC (0-5) /hpf Urine WBC (0-5) /hpf Ur Squamous Epith Cells (0-4) /hpf Urine Bacteria (None) /hpf Urine Mucus (None) /hpf - Radiology Data Radiology results: report reviewed, image reviewed Disposition Clinical Impression: Flank pain Disposition: HOME SELF-CARE Instructions (If sedation given, give patient instructions): Flank Pain (ED) Additional Instructions: Return to the emergency department with any new, worsening, or concerning symptoms. Take the diclofenac twice daily as needed for pain relief. Take this with Tylenol. You can take the Robaxin as 1 to 2 tablets up to 3-4 times daily. You can also apply the lidocaine patches daily. Follow up with your primary care provider in 1-2 days. Prescriptions: Lidocaine 5% Patch [Lidoderm 5% Patch] 1 patch TOPICAL DAILY PRN #30 patch PRN Reason: Pain methocarbamoL [Robaxin-750] 1,500 mg PO TID PRN #30 tab PRN Reason: Pain Diclofenac Sodium [Voltaren] 75 mg PO BID PRN #30 tab PRN Reason: Pain Is patient prescribed a controlled substance at d/c from ED?: No Referrals: Azael Connolly DO [Primary Care Provider] - 1-2 days Time of Disposition: 14:11
[2024-01-02 09:15] LABS: ALT 16 U/L (4-34); AST 23 U/L (14-36); African American GFR (CKD) >90 (>60 ml/min/1.73 sqM); Albumin 4.1 g/dL (3.5-5.0); Alkaline Phosphatase 45 U/L (38-126); Amylase 50 U/L (30-110); Anion Gap 5 mmol/L; Blood Urea Nitrogen 18 mg/dL (7-17); Calcium 9.3 mg/dL (8.4-10.2); Carbon Dioxide 28 mmol/L (22-30); Chloride 105 mmol/L (98-107); Glucose 111 mg/dL (74-99); Lipase 49 U/L (23-300); Non-African American GFR(CKD) >90 (>60 ml/min/1.73 sqM); Sodium 138 mmol/L (137-145); Total Bilirubin 0.8 mg/dL (0.2-1.3); Total Protein 6.4 g/dL (6.3-8.2)
--- NOTE | 2024-01-02 09:22 | CT ---
EXAMINATION TYPE: CT abdomen pelvis wo con DATE OF EXAM: 01/02/2024 COMPARISON: 04/12/2020 HISTORY: Left flank pain CT DLP: 353.1 mGycm Automated exposure control for dose reduction was used. TECHNIQUE: Helical acquisition of images was performed from the lung bases through the pelvis. FINDINGS: LUNG BASES: Trace of pericardial fluid. LIVER/GB: No significant abnormality is appreciated. PANCREAS: No significant abnormality is seen. SPLEEN: Linear density along the posterior margin of the spleen could represent. No surrounding fluid . No contrast was administered. Exam is limited. Correlate with ultrasound history trauma. ADRENALS: No significant abnormality is seen. KIDNEYS: No significant abnormality is seen. FREE AIR: No free air is visualized RETROPERITONEAL ADENOPATHY: None visualized REPRODUCTIVE ORGANS: No significant abnormality is seen URINARY BLADDER: No significant abnormality is seen. PELVIC ADENOPATHY: None visualized. OSSEOUS STRUCTURES: Severe degenerative change at L5-S1. BOWEL: Small hiatal hernia. No obstruction. Appendix not visualized moderate retained stool burden. No oral contrast given therefore assessment for bowel Limited. OTHER: Left adnexal cyst measuring 3.3 cm. IMPRESSION: 1. THERE IS A 3.3 CM LEFT ADNEXAL CYST. 2. LINEAR DENSITY ALONG THE POSTERIOR MARGIN OF THE SPLEEN INCOMPLETELY EVALUATED. NO SURROUNDING FLU ID. COULD BE ARTIFACTUAL BUT THERE IS NO CONTRAST GIVEN. THERE IS CONCERN FOR SPLENIC INJURY OR HISTO RY OF TRAUMA FOLLOW UP WITH ULTRASOUND.
[2024-01-02] MEDS: HYDROmorphone 1 MG/ML 1 ML SYRINGE IVP STA (09:29)
[2024-01-02 09:49] LABS: Appearance,Urine Cloudy (Clear); Bacteria,Urine Few /hpf; Bilirubin,Urine Negative (Negative); Blood,Urine Negative (Negative); Color,Urine Colorless; Glucose,Urine (UA) Negative (Negative); Ketones,Urine Negative (Negative); Leukocyte Esterase,Urine Negative (Negative); Mucus,Urine Rare /hpf; Nitrite,Urine Negative (Negative); Protein,Urine Trace (Negative); RBC,Urine 2 /hpf (0-5); Specific Gravity,Urine 1.017 (1.001-1.035); Squamous Epithelial Cell,Urine 3 /hpf (0-4); Urobilinogen,Urine <2.0 mg/dL (<2.0); WBC,Urine 2 /hpf (0-5)
--- NOTE | 2024-01-02 10:16 | US ---
EXAMINATION TYPE: US abdomen limited DATE OF EXAM: 01/02/2024 COMPARISON: Same day CT CLINICAL INDICATION: Female, 53 years old with history of Left sided abdominal pain; Abnormal CT, lef t flank pain TECHNIQUE: Multiple sonographic images of the left upper quadrant are obtained. FINDINGS: EXAM MEASUREMENTS: Spleen: 8.9 cm Left Kidney: 10.9 x 5.0 x 5.2 cm 1. Spleen: wnl 2. Left Kidney: No hydronephrosis or masses seen IMPRESSION: Unremarkable study
[2024-01-02] MEDS: ORPHENADRINE 30 MG/ML 2 ML VIAL IVP STA ×3 (11:32→13:46)
[2024-01-02] MEDS: MAG HYDROX/AL HYDROX/SIMETH 30 ML, HYOSCYAMINE ELIXIR 10 ML, LIDOCAINE VISCOUS 2% 10 ML PO STA ×2 (11:32→13:06)
[2024-01-02] MEDS: ACET/COD 300 MG/30 MG STARTER PACK 6 TAB BTL PO STA (14:20)
[2024-01-02 14:29] VITALS: BP 132/72; PULSE 72; RESP 16
== END 2024-01-02 14:25 | disposition home or self-care (01) ==
LOC: EC 08:04
DX: R10.9 Unspecified abdominal pain (principal)
CPT/HCPCS: 99284; 96374; 96375 ×3; 96361; 36415; 80053; 82150; 83605; 83690; 84484; 85025; 81001; 76705; 74176; J2360; J2405; J1170; J1885; 96376

== ENCOUNTER → 2024-11-24 | Outpatient (CLI) | payer MEDICAID ==
--- NOTE | 2024-11-24 11:22 | MM ---
Reason for Exam: Screening (asymptomatic). Last mammogram was performed 1 year(s) and 2 month(s) ago. Patient History: Menarche at age 15. First Full-Term at age 33. Late child-bearing (after 30). Postmenopausal. Patient has history of breast feeding. Hormonal Contraceptives for 14 years from age 21 until age 41. 04/03/2012, Benign Core Biopsy on the right side. 2008, Bilateral Implants. Risk Values: Shira 5 year model risk: 1.7%. NCI Lifetime model risk: 13.7%. Prior Study Comparison: 10/16/2012 Right Diagnostic Mammogram, [facility]. 11/17/2013 Bilateral Diagnostic Mammogram, [facility]. 10/03/2023 Bilateral MG 3D screen mammo imp/cad., [facility]. Tissue Density: The breasts are heterogeneously dense, which may obscure small masses. Findings: Analyzed By CAD. Bilateral breast implants appear intact. Right breast: There is no suspicious group of microcalcifications or new suspicious mass. Left breast: There is no suspicious group of microcalcifications or new suspicious mass. Overall Assessment: Benign, BI-RAD 2 Management: Screening Mammogram of both breasts in [address] [facility] will attempt to contact patient to return for supplemental views and ultrasound if indicated. Patient should continue monthly self-breast exams. A clinical breast exam by your physician is recommended on an annual basis. This exam should not preclude additional follow-up of suspicious palpable abnormalities. Note on Shira scores and lifetime risk: 1. A Shira score greater than 3% is considered moderate risk. If this is the case, consider specialist referral to assess eligibility for a risk reducing agent. 2. If overall lifetime risk for the development of breast cancer is 20% or higher, the patient may qualify for future screening with alternating mammogram and breast MRI. [facility], , 11/24/2024 11:19 AM. Electronically signed and approved by: Chan Camacho DO
== END | disposition home or self-care (01) ==
LOC: RADMAMWWP 10:48
PROVIDERS: ATTEND Family Medicine
DX: Z12.31 Encounter for screening mammogram for malignant neoplasm of breast (principal); R92.333 Mammographic heterogeneous density, bilateral breasts; Z78.0 Asymptomatic menopausal state; Z92.0 Personal history of contraception
CPT/HCPCS: 77063; 77067

== ENCOUNTER 2025-01-19 08:32 | Day surgery (SDC) | payer MEDICAID ==
[2025-01-18 09:03] VITALS: BMI 19.8
[2025-01-19 09:16] VITALS: TEMP 97.7
[2025-01-19] MEDS: IV FLUID CONTINUATION 1,000 ML IV ONE (09:16)
[2025-01-19] MEDS: LACTATED RINGERS 1,000 ML IV SCH (09:17)
[2025-01-19] MEDS ORDERED: PROPOFOL 10 MG/ML 20 ML VIAL IV ONE (09:58)
--- NOTE | 2025-01-19 10:13 | P.PCN ---
Date of Procedure: 01/19/25 Procedure(s) Performed: BRIEF HISTORY: Patient is a 54-year-old pleasant white female scheduled for an elective colonoscopy as a part of screening for prior history of colon polyps. Her last colonoscopy was 3 years ago and was noted to have an adenoma. PROCEDURE PERFORMED: Colonoscopy with snare polypectomy. PREOPERATIVE DIAGNOSIS: Screening for history of colon polyps]. IV sedation per Anesthesia. PROCEDURE: After informed consent was obtained, the patient, was brought into the endoscopy unit. IV sedation was administered by Anesthesia under continuous monitoring. Digital rectal examination was normal. Initially the Olympus CF-160 flexible video colonoscope was then inserted in the rectum, gradually advanced into the cecum without any difficulty. Careful examination was performed as the scope was gradually being withdrawn. Ileocecal valve and the appendiceal orifice were visualized and appeared normal. Prep was excellent. Mucosa of the cecum, ascending colon, appeared normal. The transverse colon there was a 6 mm sessile polyp that was removed by cold snare polypectomy. Rest of the transverse colon, descending colon, sigmoid colon, and rectum appeared normal. Retroflexion was performed in the rectum and no lesions were seen. The patient tolerated the procedure well. IMPRESSION: 6 mm transverse colon polyp status post cold snare polypectomy Rest of the colon appeared normal RECOMMENDATIONS: Findings of this examination were discussed with the patient as well as her family. She was advised to follow with the biopsy results. If the biopsy reveals adenoma she can have repeat colonoscopy in 5 years..
[2025-01-19 10:33] VITALS: BP 110/71; PULSE 55; RESP 16
== END 2025-01-19 10:58 ==
LOC: ORWHC2ENDO 08:32
PROVIDERS: ATTEND Internal Medicine Gastroenterology
DX: Z12.11 Encounter for screening for malignant neoplasm of colon (principal); K63.5 Polyp of colon; Z86.0101 Personal history of adenomatous and serrated colon polyps
CPT/HCPCS: 81025; 88305; 45385; J2704